=== PATIENT | female | born 1985 | race Caucasian/White ===

== ENCOUNTER 2017-08-29 13:09 | Emergency (ER) | payer OTHER ==
[~2017-08-29] VITALS: Ht 162.6 cm; Wt 49.1 kg
[2017-08-29] MEDS ORDERED: BCP PO (13:17)
[2017-08-29] MEDS ORDERED: diphenhydrAMINE INJ 50MG/ML VIAL (J1200) IV ONE (15:30)
[2017-08-29] MEDS ORDERED: KETOROLAC 30 MG/ML VIAL (J1885) IV ONE (15:30)
[2017-08-29] MEDS ORDERED: METOCLOPRAMIDE INJ 10MG/2ML VIAL (J2765) IV ONE (15:30)
[2017-08-29] MEDS ORDERED: NS 1,000 ML IV ONE (15:30)
--- NOTE | 2017-08-29 15:50 | REP ---
CT Head without contrast HISTORY: Syncope COMPARISON: 03/18/1970 There is no intraparenchymal hemorrhage, acute infarct, mass or midline shift. The ventricular system is normal in appearance. There is no extra cerebral collection. There is no fracture. The visualized sinuses are clear. IMPRESSION: There is no intracranial lesion. Signed by Jonah Lopez MD 08/29/2017 03:41 P
[2017-08-29 16:31] LABS: BASO % 0.4 % (0.0-1.0); EOS % 0.4 % (0.0-3.0); IMMATURE GRANULOCYTE % 0.1 % (0-0); LYMPH # 1.7 10^3/uL (1.5-4.5); LYMPH % 24.9 % (24.0-44.0); MEAN CORPUSCULAR HEMOGLOBIN 30.2 pg (27.0-33.0); MEAN CORPUSCULAR HGB CONC 33.8 g/dl (32.0-36.5); MEAN CORPUSCULAR VOLUME 89.4 fl (80.0-96.0); MONO # 0.3 10^3/uL (0.0-0.8); MONO % 4.4 % (0.0-5.0); NEUTROPHILS # 4.9 10^3/uL (1.8-7.7); NEUTROPHILS % 69.8 % (36.0-66.0); PLATELET COUNT, AUTOMATED 331 10^3/uL (150-450); RED CELL DISTRIBUTION WIDTH 12.6 % (11.5-14.5)
[2017-08-29 16:52] LABS: ANION GAP 6 MEQ/L (8-16); BLOOD UREA NITROGEN 9 MG/DL (7-18); CALCIUM LEVEL 8.9 MG/DL (8.5-10.1); CARBON DIOXIDE LEVEL 27 MEQ/L (21-32); CHLORIDE LEVEL 106 MEQ/L (98-107); CREATININE FOR GFR 0.72 MG/DL (0.55-1.02); GLOMERULAR FILTRATION RATE > 60.0 (>60); GLUCOSE, FASTING 80 MG/DL (70-105); MAGNESIUM LEVEL 2.1 MG/DL (1.8-2.4); POTASSIUM SERUM 3.9 MEQ/L (3.5-5.1); SODIUM LEVEL 139 MEQ/L (136-145)
[2017-08-29 18:00] VITALS: BP 125/69
--- NOTE | 2017-08-30 05:58 | ECGEPIP ---
Stationary ECG Study [facility] - ED Test Date: 2017-08-29 Pat Name: EMIR MCKEON Department: Room: - Gender: F [employer]ole [employer] Hand: felicia : 1985 Requested By: BHAVNA RICHARDS Order Number: [id number] Reading MD: Reagan Gibson Measurements Intervals [place] Rate: 76 P: 49 GA: 117 QRS: 62 QRSD: 97 T: 56 QT: 387 QTc: 436 Interpretive Statements SINUS RHYTHM WITH SHORT GA INTERVAL BENIGN EARLY REPOLARIZATION NO PRIORS Electronically Signed On 08-30-2017 5:57:52 EDT by Reagan Gibson
== END 2017-08-29 18:12 | disposition home or self-care (01) ==
LOC: M ED 13:09
DX: G43.909 Migraine, unspecified, not intractable, without status migrainosus (principal); E28.2 Polycystic ovarian syndrome
CPT/HCPCS: 70450; 80048; 83735; 85025; 93005; 96361; 96374; 96375; 99284; J1200; J1885; J2765